=== PATIENT | male | born 1945 | race Two or more races ===

== ENCOUNTER 2019-02-06 06:10 | Day surgery (SDC) | payer OTHER ==
[~2019-02-06 06:10] MED LIST: ATENOLOL100 MG PO; HYZAAR 100-12.1 EACH PO
[2019-02-06] MEDS ORDERED: ULTRACET PO (11:43)
[2019-02-06] MEDS ORDERED: ZANTAC300 MG PO (11:43)
== END 2019-02-06 14:00 | disposition home or self-care (01) ==
LOC: CIR.AMB 06:10
DX: K80.10 Calculus of gallbladder with chronic cholecystitis without obstruction (principal)